=== PATIENT | female | born 2000 | race Caucasian/White ===

== ENCOUNTER 2020-09-06 20:07 | Emergency (ER) | payer OTHER, SELFPAY ==
[2020-09-06] MEDS ORDERED: Lidocaine 1% w/Epinephrine 1:100K 20 ML VIAL ONE (20:32)
[2020-09-06] MEDS ORDERED: Bacitracin 1 PK ONE (20:33)
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
[2020-09-06] MEDS ORDERED: Ibuprofen 800 MG TAB ONE (21:23)
[2020-09-06] MEDS ORDERED: Cyclobenzaprine 10 MG TAB ONE (21:23)
[2020-09-06] MEDS ORDERED: HYDROcodone/Acetaminophen 5/325 mg Tablet ONE (21:23)
[2020-09-06] MEDS ORDERED: Acetaminophen 325 MG TAB ONE (21:23)
== END 2020-09-06 21:32 | disposition home or self-care (01) ==
LOC: MADERS 20:07
DX: S06.0X9A Concussion with loss of consciousness of unspecified duration, initial encounter (principal); S01.81XA Laceration without foreign body of other part of head, initial encounter; S70.11XA Contusion of right thigh, initial encounter; S80.11XA Contusion of right lower leg, initial encounter; V89.2XXA Person injured in unspecified motor-vehicle accident, traffic, initial encounter
CPT/HCPCS: 12011; 70450